=== PATIENT | female | born 1960 | race Two or more races ===

== ENCOUNTER 2019-05-03 06:45 | Day surgery (SDC) | payer BC ==
[~2019-05-03] VITALS: Ht 162.6 cm; Wt 63.5 kg
[2019-05-03] VITALS (9 sets, daily range): BP systolic 106–142; BP diastolic 57–75
[~2019-05-03 06:45] MED LIST: CRESTOR10 M2 ORAL; IBUPROFEN600 MG ORAL; MAGNESIUM100 MG PO; METOPROLOL SUCC50 MG ORAL; MULTIVITAMINS1 EAC2 ORAL; NORCO 5-325 TA1 EACH ORAL; VITAMIN D1000 UNI1 ORAL; ZOFRAN ODT4 MG ORAL
[2019-05-03] MEDS ORDERED: LR 1000ml 1,000 ML IVLG SCH (07:00)
[2019-05-03] MEDS ORDERED: Succinylcholine 20mg/ml 10ml vial ONE (07:38)
--- NOTE | 2019-05-03 07:39 | Short Stay Surgery H&P ---
History of Present Illness History of Present Illness Chief Complaint Abdominal pains and screening colon HPI Yoanna Raymundo is a 58 year old female who was admitted on for GERD/ abdominal pain Patient History Allergies: Coded Allergies: No Known Allergies (Unverified , 02/25/14) PAST MEDICAL HISTORY: (1) History of eye surgery (2) Diverticula of colon (3) Hemorrhoids (4) Irritable bowel disease (5) Renal stone (6) Hypertension (7) Hyperlipidemia Medication History Scheduled Cholecalciferol (Vitamin D3)* (Vitamin D*), 1,000 UNIT ORAL DAILY, (Reported) Magnesium Amino Acid Chelate (Magnesium), 100 MG PO DAILY, (Reported) Metoprolol Succinate* (Metoprolol Succinate*), 50 MG ORAL DAILY, (Reported) Multivitamins* (Multivitamins*), 1 TAB ORAL DAILY, (Reported) Rosuvastatin Calcium* (Crestor*), 5 MG ORAL DAILY, (Reported) Discontinued Medications Hydrocodone Bit/Acetaminophen 5-325* ([place] 5-325*), 1 TAB ORAL Q6H PRN for For Pain Discontinued Reason: Pt stopped taking med Ondansetron Odt* (Zofran Odt*), 4 MG ORAL Q6H PRN for Nausea & Vomiting Discontinued Reason: Pt stopped taking med Review of Systems Cardiovascular: Reports: no symptoms, hypertension Respiratory: Reports: no symptoms Skeletal: Reports: no symptoms Gastrointestinal: Reports: gastro esophageal reflux disease Genitourinary: Reports: no symptoms Neurologic: Reports: no symptoms Endocrine: Reports: no symptoms Hematologic: Reports: no symptoms Physical Exam Vital Signs Last Vital Signs Date Time Temp Pulse Resp B/P (MAP) Pulse Ox O2 Delivery O2 Flow Rate FiO2 05/03/19 07:28 Room Air Skin: normal HENT: normal Heart: normal Lungs: normal Abdomen: abnormal Extremities: normal Genitourinary: normal Plan Plan of Care Upper and lower GI. endoscopy and biopsy. Preop Interventions None. Summary of Findings See the reports. Attestation Are the patient's medical conditions optimized for surgery? Attestation Response: yes Fritz Desir MD May 03, 2019 07:39
--- NOTE | 2019-05-03 07:41 | Pre-Procedure Note/Attestation ---
Pre-Procedure Note/Attestation Complete Prior to Procedure Planned Procedure: left Procedure Narrative: Examinations of the upper and the lower GI tract via endoscopy with obtaining biopsies. Indications for Procedure Pre-Operative Diagnosis: R/O Gastritis/colon polyps/colitis/ CA Attestation I attest that I discussed the nature of the procedure; its benefits; risks and complications; and alternatives (and the risks and benefits of such alternatives ), prior to the procedure, with the patient (or the patient's legal title insurance sales representative). I attest that, if there was a reasonable possibility of needing a blood transfusion, the patient (or the patient's legal title insurance sales representative) was given the [place] [employer] standardized written summary, pursuant to the Bakari Kamini Blood Safety Act ([place] Health and Safety Code # 1645, as amended). I attest that I re-evaluated the patient just prior to the surgery and that there has been no change in the patient's H&P, except as documented below: Fritz Desir MD May 03, 2019 07:41
--- NOTE | 2019-05-03 07:49 | Anethesia Preoperative Eval ---
Anesthesia Pre-op PMH/ROS General Date of Evaluation: May 03, 2019 Time of Evaluation: 07:42 Anesthesiologist: Landy Crain CRNA ASA Score: ASA 2 Mallampati Score Class I : Soft palate, uvula, fauces, pillars visible Class II: Soft palate, uvula, fauces visible Class III: Soft palate, base of uvula visible Class IV: Only hard plate visible Mallampati Classification: Class II Surgeon: Thang Diagnosis: GERD Surgical Procedure: EGD, colonoscopy Anesthesia History: none Family History: no anesthesia problems Allergies: Coded Allergies: No Known Allergies (Unverified , 02/25/14) Medications: see eMAR Patient NPO?: Yes NPO Date: May 03, 2019 NPO Time: 00:00 Past Medical History Cardiovascular: Reports: HTN, other - hyperlipidemia; Denies: CAD, CO, valve dz, arrhythmia Pulmonary: Denies: asthma, COPD, [place]FF[place], other Gastrointestinal/Genitourinary: Reports: GERD, other - IBD, diverticulosis, kidney stones; Denies: CRI, ESRD Endocrine: Denies: DM, hypothyroidism, steroids, other Hematology/Immune: Denies: anemia, DVT, bleeding disorder, other Musculoskeletal/Integumentary: Reports: other - herniated lumbar disc; Denies: OA, RA, DJD, DDD, edema PMH Narrative: as noted above PSxH Narrative: tonsillectomy, partial hysterectomy, blepheroplasty, (R) knee arthroscopy Anesthesia Pre-op Phys. Exam Physician Exam Last Vital Signs Date Time Temp Pulse Resp B/P (MAP) Pulse Ox O2 Delivery O2 Flow Rate FiO2 05/03/19 07:35 97.6 56 18 121/72 98 Room Air Constitutional: NAD Neurologic: other - Alert & oriented Cardiovascular: RRR Respiratory: CTA Gastrointestinal: S/NT/ND Airway Exam Mallampati Score: Class II MO: full Neck: FROM TMD: > 3 FB Teeth: intact Dentures: no upper, no lower Anesthesia Pre-op A/P Risk Assessment & Plan Assessment: ASA 2, ok to proceed Plan: MAC Status Change Before Surgery: No Pre-Antibiotics Given Within 1 Hr of Incision: Landy Acevedo CRNA May 03, 2019 07:49
[2019-05-03] MEDS ORDERED: Propofol 200mg/20ml IV ONE (08:00)
[2019-05-03] MEDS ORDERED: Lidocaine 1% MPF 10mg/ml 5ml ONE (08:00)
[2019-05-03] MEDS ORDERED: LR 1000ml ONE (08:00)
--- NOTE | 2019-05-03 08:13 | Immediate Post-Op Evaluation ---
Immediate Post-Op Evalulation Immediate Post-Op Evalulation Procedure: EGD, colonoscopy with biopsies Date of Evaluation: May 03, 2019 Time of Evaluation: 08:25 IV Fluids: LR 400 ml Blood Pressure Systolic: 128 Blood Pressure Diastolic: 64 Pulse Rate: 58 Respiratory Rate: 18 O2 Sat by Pulse Oximetry: 100 Temperature (Fahrenheit): 97.6 Pain Score (1-10): 0 Nausea: No Vomiting: No Patient Status: awake, reacts, patent Hydration Status: adequate Given Within 1 Hr of Incision: Landy Acevedo CRNA May 03, 2019 08:13
--- NOTE | 2019-05-03 08:53 | Discharge Instructions ---
Discharge Instructions Discharge Instructions Follow up with: See the docotor in office after 2 weeks For Congestive Heart Failure Reminder Report to your physician any weight gain of 5 pounds or more in one week. Fritz Desir MD May 03, 2019 08:53
--- NOTE | 2019-05-03 08:56 | Endoscopy Procedure Note ---
Endoscopy Procedure Note General Indication for Procedure: Abdominal pains and screeniong colon Procedures Performed: EGD - Completely normal Upper GI endoscopy, biopsy was taken per random from gastric body, colonoscopy - Internal hemorrhoids, Diverticulosis of the colon, otherwise completely normal total colonoscopy Anesthesia Anesthesiologist: Landy Crain CRNA Anesthesia: moderate sedation Medications Medication Given: see anesthesia record Inserted Devices Implant(s) used?: No Quality Quality of Bowel Preparation: Excellent Did scope reach the cecum?: Yes Was there any complications?: No GI Core Measures 50 yrs or older w/o bx or poly: Yes 10yrs. F/U recommended: Yes Med reason:<3 yrs.: System Reason:<3 yrs.: Last colonoscopy >= to 3yrs: Yes Fritz Desir MD May 03, 2019 08:56
--- NOTE | 2019-05-03 09:45 | Operative Note - Dictated ---
DATE OF OPERATION: 05/03/2019 SURGEON: Fritz Desir M.D. PROCEDURE: Total colonoscopy. PREOPERATIVE DIAGNOSIS: Screening colonoscopy. POSTOPERATIVE DIAGNOSES: 1. Internal hemorrhoids. 2. Diverticulosis of the colon, otherwise complete normal study up to the base of the cecum. MEDICATION USED: Alli Crain CRNA. INSTRUMENT: GIF Olympus video colonoscope. DESCRIPTION OF PROCEDURE: The patient after arriving in the endoscopy unit, was told about risks and benefits of the procedure, which she accepted and signed informed consent. This procedure was being done for screening of the colon only. At this point, the scope was gradually advanced into the rectoanal area, which revealed evidence of internal hemorrhoids, but they were not bleeding. The rest of the rectum also looked completely normal. At this time, the scope was passed through rather redundant left colon, which revealed evidence of scattered diverticular lesions, but there was no any evidence of inflammatory process, ulceration, polyps, tumors, strictures, etc. Gradually, the scope was advanced towards the splenic flexure. From there, it was guided into transverse colon, hepatic flexure, and finally moved to the right colon all the way to the base of the cecum. All these areas were seen that they were completely normal and no evidence of any abnormality was found. The colon cleanup was also adequate and excellent. At this time, within 6 minutes, the scope was gradually pulled out after reaching to the cecum and there was no any other abnormalities found again upon withdrawal of the scope. The patient tolerated the procedure well and left the endoscopy room in a good condition. Fritz Desir M.D. DR: JANINA JOB#: [id number] CC:
--- NOTE | 2019-05-03 10:30 | Operative Note - Dictated ---
DATE OF OPERATION: 05/03/2019 SURGEON: Fritz Desir M.D. PROCEDURE: Esophagogastroduodenoscopy with biopsy. PREOPERATIVE DIAGNOSIS: Abdominal pain, history of chronic gastroesophageal reflux, rule out Dempsey's mucosa esophagitis. POSTOPERATIVE DIAGNOSIS: Completely normal upper GI endoscopy. Biopsy was taken per random from gastric body. MEDICATION USED: Alli Crain CRNA. INSTRUMENT: GIF Olympus upper GI video endoscope. DESCRIPTION OF PROCEDURE: The patient after arriving in the endoscopy unit, was told about the risks and benefits of the procedure, which she accepted and signed informed consent. At this time, she was put on the left lateral decubitus position. After adequate IV sedation, the scope was gently passed through the cricopharyngeal area and was introduced into the upper esophagus. The scope was gradually passed towards gastroesophageal junction. The entire length of the esophagus looked normal. The GE junction also looked completely normal. No evidence of Dempsey's or hiatal hernia noted. At this time, the scope was advanced into the stomach, gastric cavity was distended with insufflation of air and the areas of the upper, mid, and lower part of the stomach was examined and it revealed no any abnormality there was no any erythema, ulcers, polyps, tumors, hemangioma, etc. A retroflexion maneuver was also applied and the area of the gastroesophageal junction was examined in a closer fashion and revealed no abnormalities. At this point, one random biopsy from gastric body obtained and subsequently scope was passed through antrum and the pylorus and first and second portion of duodenum were also examined that they looked completely normal. Finally, scope was pulled out and the procedure was terminated. The patient tolerated the procedure well. Fritz Desir M.D. DR: KAMILLE JOB#: [id number] CC:
--- NOTE | 2019-05-03 11:32 | 48 Hour Post Anesthesia Eval ---
Post Anesthesia Evaluation Procedure: EGD, colonoscopy with biopsies Date of Evaluation: May 03, 2019 Time of Evaluation: 11:32 Blood Pressure Systolic: 112 0: 57 Pulse Rate: 57 Respiratory Rate: 16 Temperature (Fahrenheit): 97.4 O2 Sat by Pulse Oximetry: 100 Airway: patent Nausea: No Vomiting: No Pain Intensity: 0 Hydration Status: adequate Cardiopulmonary Status: stable Follow-up Care/Observations: per GI Post-Anesthesia Complications: none Follow-up care needed: N/A Landy Crain CRNA May 03, 2019 11:32
== END 2019-05-03 09:30 | disposition home or self-care (01) ==
LOC: SUR 06:45
DX: Z12.11 Encounter for screening for malignant neoplasm of colon (principal); R10.9 Unspecified abdominal pain; K21.9 Gastro-esophageal reflux disease without esophagitis; K64.8 Other hemorrhoids; K57.90 Diverticulosis of intestine, part unspecified, without perforation or abscess without bleeding; I10 Essential (primary) hypertension; E78.5 Hyperlipidemia, unspecified; Z79.899 Other long term (current) drug therapy
CPT/HCPCS: 43239; 45378; J0330; J2704; 94003; 94150